=== PATIENT | male | born 1980 | race Two or more races ===

== ENCOUNTER 2024-12-30 03:41 | Emergency (ER) | payer MEDICAID, SELFPAY ==
[2024-12-30 03:53] VITALS: BP 159/99; PULSE 88; RESP 19; TEMP 36.8; O2SAT 96; BMI 38.7
--- NOTE | 2024-12-30 03:58 | XR_ITS ---
Examination: Abdomen sonogram, Limited Date and time of exam: December 30, 2024 at 0636 hrs. Indications: Epigastric pain today Technique: Real-time dotson scale transabdominal sonographic images of the upper abdomen obtained. Findings: Normal gallbladder Normal common bile duct 0.2 cm Pancreatic head 3.2 cm Liver 19.7 cm fatty infiltration no focal liver lesions Normal hepatopedal portal venous flow Patent IVC Impression: Normal gallbladder Moderate hepatomegaly fatty liver
--- NOTE | 2024-12-30 03:59 | PD.EDRME ---
Rapid Medical Screening Exam RME Arrival date/time: 12/30/24 03:41 44-year-old male with history of GERD reports with complaints of epigastric abdominal pain and burning that began this evening Chief Complaint: Abdominal Pain Time Seen by Provider: 12/30/24 03:45 Vital signs: Vital Signs Temperature 98.3 F 12/30/24 03:53 Pulse Rate 88 12/30/24 03:53 Respiratory Rate 19 12/30/24 03:53 Blood Pressure 159/99 H 12/30/24 03:53 Pulse Oximetry (%) 96 12/30/24 03:53 Oxygen Delivery Method Room Air 12/30/24 03:53
[2024-12-30] MEDS: ONDANSETRON INJ 2 MG/ML INJ 2 ML 4 MG IM (04:05)
[2024-12-30 04:36] LABS: Collection Type, Urine Clean Catch
[2024-12-30 04:49] LABS: Bacteria,Urine Rare; Bilirubin,Urine Negative (Negative); Blood,Urine Negative (Negative); Clarity,Urine Clear (Clear/Hazy); Color,Urine Yellow (Lt Yel-Yel); Culture Indicated,Urine Not Indicated; Glucose, Urine Negative (Negative); Ketones,Urine Negative (Negative); Leukocyte Esterase,Urine Negative (Negative); Nitrite,Urine Negative (Negative); PH,Urine 6.5 (5.0-7.0); Protein,Urine Trace (Neg - Trace); RBC,Urine 1 /hpf (0-3); Specific Gravity,Urine 1.024 (1.001-1.035); Squamous Epithelial Cell,Urine < 1 /hpf (0-5); Urobilinogen,Urine Negative mg/dL (0.0-1.0); WBC,Urine 3 /hpf (0-5)
[2024-12-30 05:09] LABS: Basophils % (Auto) 0 % (0-2.5); Eosinophils # (Auto) 0.1 Thou/mm3 (0.0-0.5); Eosinophils % (Auto) 1 % (0-10); Hematocrit 43.7 % (41.0-53.0); Hemoglobin 15.3 g/dL (13.5-16.0); Immature Granulocytes % (Auto) 0 % (0-0); Immature Granulocytes Auto 0.04 Thou/mm3 (0.00-0.00); Lymphocytes # (Auto) 2.3 Thou/mm3 (1.0-4.8); Lymphocytes % (Auto) 20 % (10-50); Mean Corpuscular Hemoglobin 30.7 pg (25.0-35.0); Mean Corpuscular Volume 88 fL (80-100); Monocytes # (Auto) 1.1 Thou/mm3 (0.0-0.8); Monocytes % (Auto) 10 % (0-12); Neutrophils # (Auto) 7.6 Thou/mm3 (1.8-7.7); Neutrophils % (Auto) 68 % (37-80); Nucleated Red Blood Cell % 0 /100 WBC (0); Platelet Count 255 Thou/mm3 (140-440); RDW Standard Deviation 39.3 fL (35.1-43.9); Red Blood Count 4.98 Miln/mm3 (4.50-5.90); White Blood Count 11.1 Thou/mm3 (3.8-10.6)
[2024-12-30 05:45] LABS: Alanine Aminotransferase 17 U/L (10-49); Albumin, Serum 4.7 gm/dL (3.5-5.0); Albumin/Globulin Ratio 1.7 (1.2-2.2); Alkaline Phosphatase 74 U/L (46-116); Anion Gap 6 (7-16); Aspartate Amino Transferase 17 U/L (0-34); BUN/Creatinine Ratio 13 Ratio (12-20); Bilirubin,Total 0.7 mg/dL (0.3-1.2); Blood Urea Nitrogen 12 mg/dL (9-23); Calcium 9.9 mg/dL (8.3-10.6); Calcium (Corrected) 9.9 mg/dL (8.5-10.1); Chloride 104 mMol/L (98-107); Creatinine (Component) 0.9 mg/dL (0.6-1.3); Estimated Creatinine Clearance 148.9 mL/min (>60); Globulin 2.7 gm/dL (2.3-3.5); Glucose 118 mg/dL (74-106); Lipase 31 U/L (12-53); Osmolality,Calculated 274 (275-295); Sodium 137 mMol/L (136-145); Total Protein 7.4 gm/dL (5.7-8.2); eGFR > 60 See Note
[2024-12-30 06:47] LABS: Troponin I < 0.002 ng/mL (0.0-0.045)
--- NOTE | 2024-12-30 06:57 | EDNOTE_ITS ---
<Statement entered by Chiquita Moreno MD - 12/31/24 12:05> As co-signing physician, I was present and available for consult prn. I concur with the plan and care as documented by the midlevel provider. ED Abdominal Pain RME/HPI General Chief Complaint: Abdominal Pain Stated complaint: ABD PAIN Time seen by provider: 12/30/24 03:45 Arrival date/time: 12/30/24 03:41 44-year-old male with history of GERD reports with complaints of epigastric abdominal pain and burning that began this evening. Patient ports no chest pain no shortness of breath no headache dizziness or weakness patient reports that this is a regular occurrence for him patient not currently take any medication at home Limitations: no limitations RME / HPI RME / HPI narrative: 12/30/24 03:41 44-year-old male with history of GERD reports with complaints of epigastric abdominal pain and burning that began this evening Related Data Previous Rx's ?Medication ?Instructions ?Recorded famotidine 20 mg tablet (Pepcid) 20 mg PO BID 30 days #60 tabs 12/30/24 omeprazole 20 mg capsule,delayed 20 mg PO QDAY 14 days #14 caps 12/30/24 release Allergies Allergy/AdvReac Type Severity Reaction Status Date / Time No Known Allergies Allergy Verified 12/30/24 04:00 Review of Systems Review of Systems Systems Reviewed: All systems reviewed, normal except as documented Constitutional Constitutional: Reports system reviewed and no additional complaints, except as documented, Denies fever(s) and Denies headache(s) Eyes Eyes: Reports system reviewed and no additional complaints, except as documented and Denies blurry vision ENT Ears, Nose, Mouth, and Throat: Reports system reviewed and no additional complaints, except as documented, Denies headache(s), Denies nasal congestion and Denies nasal discharge Cardiovascular Cardiovascular: Reports system reviewed and no additional complaints, except as documented, Denies chest pain and Denies dyspnea Respiratory Respiratory: Reports system reviewed and no additional complaints, except as documented, Denies chest congestion, Denies cough and Denies dyspnea Gastrointestinal Gastrointestinal: Reports system reviewed and no additional complaints, except as documented, Reports abdominal pain, Reports belching, Reports dyspepsia, Denies hematochezia, Denies loose stools and Denies nausea Integumentary/Breasts Skin/Breast: Reports system reviewed and no additional complaints, except as documented and Denies rash Neurologic Neurologic: Reports system reviewed and no additional complaints, except as documented, Reports as per HPI and Denies headache(s) Past Medical History Social History SMOKING STATUS: Never smoker ED Exam General Limitations: Present no limitations General appearance: Present alert and in no apparent distress Head Head exam: Present atraumatic, normocephalic and normal inspection Eye Eye exam: Present normal appearance, PERRL and EOMI; Absent conjunctival injection ENT ENT exam: Present normal exam, normal oropharynx and mucous membranes moist Neck Neck exam: Present normal inspection, full ROM and trachea midline Chest Chest inspection: Present normal inspection and symmetric chest wall rise Respiratory Respiratory exam: Present normal lung sounds bilaterally; Absent respiratory distress Cardiovascular Cardiovascular exam: Present regular rate, normal rhythm and normal heart sounds Abdominal Exam Abdominal exam: Present soft and normal bowel sounds; Absent distention, tenderness, guarding, rebound, rigidity, Anderson's sign or tenderness at McBurney's Point Abdominal tenderness: Present epigastrium and mild; Absent RUQ or RLQ Extremities Exam Extremities exam: Present normal inspection and full ROM Back Exam Back exam: Present normal inspection and full ROM Neurological Exam Neurological exam: Present alert, oriented X3 and CN II-XII intact Psychiatric Psychiatric exam: Present normal affect and normal mood Skin Skin exam: Present warm, dry, intact and normal color Course Quality Measures none Orders Category Date Time Status US abdomen limited Stat Exams 12/30/24 03:58 Completed CBC Stat Lab 12/30/24 04:50 Completed CMP [Comprehensive Metabolic Panel] Stat Lab 12/30/24 04:50 Completed Lipase Stat Lab 12/30/24 04:50 Completed Troponin I Stat Lab 12/30/24 04:50 Completed UA, C/S IF [Urinalysis, C/S if Indicated] Stat Lab 12/30/24 04:25 Completed Ondansetron Inj [Zofran Inj] Med 12/30/24 03:58 Discontinued 4 mg IM X1 ONE Vital Signs Vital signs: Vital Signs Temperature 98.3 F 12/30/24 03:53 Pulse Rate 88 12/30/24 03:53 Respiratory Rate 19 12/30/24 03:53 Blood Pressure 159/99 H 12/30/24 03:53 Pulse Oximetry (%) 96 12/30/24 03:53 Oxygen Delivery Method Room Air 12/30/24 03:53 O2 saturation 96% on room air within normal limits Abdominal Pain MDM MDM Narrative MDM Narrative:: 44-year-old male with history of GERD reports with complaints of epigastric abdominal pain and burning that began this evening. Patient ports no chest pain no shortness of breath no headache dizziness or weakness patient reports that this is a regular occurrence for him patient not currently take any medication at home Lab work and ultrasound obtained no acute emergent findings noted Patient was given Zofran here report symptoms improved Explained to the patient he should be checked for H. pylori and have a GI consult Patient discharged home in no distress to follow-up with primary care doctor in the next 24 to 48 hours and for any worsening symptoms to return to the ER immediately Patient data External records reviewed:: [facility] previous records Clinical information provided by:: patient Social determinants that could affect healthcare access:: none Patient has the following chronic illnesses:: None How is presenting disease/condition affected by chronic disease/condition?: no chronic disease Evaluation data The following diagnostics were reviewed and interpreted by me:: lab results and radiology exam(s) Lab and/or radiology exams considered but not ordered:: Lab obtain radiology obtain Interpretation Summary: Reviewed by me Medications / Prescriptions Medications or Prescriptions considered but not ordered:: Given Medication administrations:: Medication Administration History Discontinued Medications Ondansetron HCl (Ondansetron Inj 2 Mg/Ml Inj 2 Ml) 4 mg IM X1 ONE; Protocol Stop: 12/30/24 03:59 Last Admin: 12/30/24 04:05 Dose: 4 mg Documented By: CVL Given Consultations Consultation(s) initiated? (list below): No Diagnosis Differential diagnosis abdominal pain: abdominal pain, acute appendicitis, pancreatitis and small bowel obstruction Most likely diagnosis given after review of the tests above:: Heartburn, acid reflux Admission Indicated Admission indicated?: not indicated Admission Request Was there a request for admission?: No Disposition Plan Disposition Plan: Discharge Discharge Attestation Discharge Attestation: The patient and all family members were given an opportunity to ask questions and understood the discharge instructions. Discharge instructions specifically effects, indications for sooner follow up or return to the emergency department, and the expected course of current diagnosis. Patient condition: Stable Discharge Plan Plan Patient Disposition: HOME (Self Care) Disposition Comment: stable Prescriptions/Referrals Prescriptions/Med Rec: New famotidine [Pepcid] 20 mg tablet 20 mg PO BID 30 Days Qty: 60 0RF omeprazole 20 mg capsule,delayed release(DR/EC) 20 mg PO QDAY 14 Days Qty: 14 0RF Referrals: Jose Luis Jackson PA-C [Primary Care Provider] - 01/01/25 Problem List Clinical Impression: Heartburn Patient/Caregiver Discharge Instructions Additional Instructions: Please follow up with your primary care doctor in the next 24-48hrs for any wors ening symptoms return here immediately Please request H. pylori testing by PCP Print Language: Colombian Stand Alone Forms: Veron[employer] Award Info., Patient Portal Info Letter PA/[facility] ATTENDANT Supervising Physician PA/[facility] ATTENDANT Supervising Physician: Dr. MORENO
--- NOTE | 2024-12-30 07:24 | PRELIM_ITS ---
Right upper quadrant abdominal ultrasound. December 30, 2024 at 0636 hours Clinical history: Epigastric abdominal pain. Technique: Grayscale and color flow images of the right upper quadrant are provided. Hepatic and portal veins were also imaged with color flow images. Comparison: No prior study is available for comparison. Findings: There is mild hepatomegaly. The liver demonstrates coarse increased echogenicity. No intrahepatic biliary ductal dilatation. No gallbladder calculus, wall thickening or pericholecystic fluid is demonstrated. The common bile duct is normal in caliber at 2 mm. The pancreas is partially obscured by bowel gas and unremarkable to the extent visualized. The main portal vein and inferior vena cava are patent. Impression: No evidence of cholelithiasis or cholecystitis. Fatty liver. Report Electronically Signed By: Eric Jane 12/30/2024 7:23:41 AM [EST]
== END 2024-12-30 07:37 | disposition home or self-care (01) ==
PROVIDERS: Physician Assistant; Emergency Provider Emergency Medicine; PCP Physician Assistant
DX: K21.9 Gastro-esophageal reflux disease without esophagitis (principal)
CPT/HCPCS: 36415; 76705; 80053; 81001; 83690; 84484; 85025; 96372; 99284; J2405

== ENCOUNTER → 2025-03-29 | Outpatient (CLI) | payer MEDICAID, SELFPAY ==
--- NOTE | 2025-03-29 10:00 | XR_ITS ---
Examination: CT abdomen, without intravenous contrast. CT abdomen, with intravenous contrast. Sagittal and coronal 2-D reconstructions. Time of exam:March 29, 2025 1047 hours INDICATIONS: Hepatomegaly epigastric pain several weeks CTDI: vol (mGy) 60.55 DLP: (mGycm) 2381 Technique: Multiple 3.0 mm axial noncontrast images of the abdomen have been obtained. Multiple 3.0 mm axial images post administration 100 cc Isovue-370 intravenous contrast have been obtained. Sagittal and coronal 3-D reconstructions have been obtained. Low dose protocols were performed. One or more of the following dose reduction techniques were used; automated exposure control, adjustment of the mA and/or KV according to patient size, use of iterative reconstruction technique. Findings: Small pericardial effusion No enhancing liver lesions No gallstones Spleen not enlarged No pancreatic or adrenal mass Small bilateral benign renal cysts No renal calculi, minor calcification in the wall of a 36 mm right renal cyst No hydronephrosis or ureteral calculi Aorta normal size 21 mm fat-containing umbilical hernia Advanced degenerative disc disease L2-L3, L5-S1 IMPRESSION: No enhancing liver lesions Benign renal cysts Aorta normal size Small fat-containing a buckle hernia
== END | disposition home or self-care (01) ==
LOC: CCTX 09:53
PROVIDERS: Referring Provider Physician Assistant; Visit Provider Physician Assistant
DX: N28.1 Cyst of kidney, acquired (principal); K46.9 Unspecified abdominal hernia without obstruction or gangrene
CPT/HCPCS: 74170; A4649; Q9967